=== PATIENT | female | born 1940 | race Caucasian/White ===

== ENCOUNTER 2025-06-07 17:36 | Emergency (ER) | payer MEDICARE, OTHER ==
[~2025-06-07] VITALS: Ht 149.9 cm; Wt 68.0 kg
[2025-06-07 17:45] VITALS: TEMP 98
[2025-06-07 18:27] LABS: BASOPHILS % 0.5 % (0.0-1.0); EOSINOPHILS % 3.3 % (0.0-6.0); LYMPHOCYTES % 22.2 % (18.0-39.1); MONOCYTES % 11.0 % (4.4-11.3); NEUTROPHILS % 62.5 % (38.7-80.0); RED CELL DISTRIBUTION WIDTH 12.5 % (11.7-14.4)
[2025-06-07 18:50] LABS: EST GLOMERULAR FILTRATION RATE 39.0 ML/MIN (>=60)
[2025-06-07] MEDS ORDERED: IOPAMIDOL 370 MG/ML 100 ML INFUS..BTL INJ ONE (19:10)
[2025-06-07] MEDS ORDERED: SODIUM CHLORIDE 0.9% 100 ML ONE (19:10)
[2025-06-07 21:56] VITALS: PULSE 72; RESP 18
[2025-06-07 21:57] VITALS: BP 148/86; PULSE 72; RESP 18; O2SAT 99
== END 2025-06-07 21:47 | disposition home or self-care (01) ==
LOC: ER 17:54
DX: S06.0X0A Concussion without loss of consciousness, initial encounter (principal); R42 Dizziness and giddiness; W01.0XXA Fall on same level from slipping, tripping and stumbling without subsequent striking against object, initial encounter; Y93.01 Activity, walking, marching and hiking; Y92.89 Other specified places as the place of occurrence of the external cause; I10 Essential (primary) hypertension; R94.31 Abnormal electrocardiogram [ECG] [EKG]
CPT/HCPCS: 36415; 70496; 70498; 71045; 80053; 82550; 83690; 83880; 84484; 85025; 93005; 99284; J7050; Q9967

== ENCOUNTER 2025-08-11 10:54 | Emergency (ER) | payer MEDICARE ==
[~2025-08-11] VITALS: Ht 149.9 cm; Wt 68.0 kg
[2025-08-11 11:40] VITALS: TEMP 97.4
[2025-08-11] MEDS: IBUPROFEN 400 MG TAB PO ONE (12:05)
[2025-08-11 13:43] VITALS: PULSE 79; RESP 16; O2SAT 98
== END 2025-08-11 13:44 | disposition home or self-care (01) ==
LOC: ER 11:45
DX: S40.011A Contusion of right shoulder, initial encounter (principal); I10 Essential (primary) hypertension; K21.9 Gastro-esophageal reflux disease without esophagitis; F32.A Depression, unspecified; Z96.659 Presence of unspecified artificial knee joint
CPT/HCPCS: 99283